=== PATIENT | female | born 1975 | race Caucasian/White ===

== ENCOUNTER 2021-09-05 16:49 | Inpatient (IN) | payer BC ==
[~2021-09-05] VITALS: Ht 157.5 cm; Wt 72.6 kg
[2021-09-05] MEDS ORDERED: EPINEPHRINE 1:1000 1 MG/ML AMP INJ ONE ×2 (17:15→19:15)
[2021-09-05] MEDS ORDERED: SODIUM CHLORIDE 0.9% 1,000 ML IV ONE (17:15)
[2021-09-05] MEDS ORDERED: FAMOTIDINE 20MG/2ML VIAL IV ONE (17:15)
[2021-09-05] MEDS ORDERED: METHYLPREDNISOLONE SOD SUCC 125 MG/2 ML VIAL IV ONE (17:15)
[2021-09-05] MEDS ORDERED: DIPHENHYDRAMINE 50MG/ML VIAL IV ONE (17:15)
[2021-09-05] MEDS ORDERED: HYDRALAZINE 20MG/ML VIAL IV ONE (17:15)
[2021-09-05] MEDS ORDERED: LORAZEPAM 2MG/ML CPJ IV ONE (17:30)
[2021-09-05 17:31] LABS: BASOPHILS % 0.2 % (0.0-2.0); EOSINOPHILS % 0.2 % (0.0-5.0); HEMATOCRIT. 31.1 % (36.0-48.0); HEMOGLOBIN. 10.7 g/dL (12.0-16.0); LYMPHOCYTES % 17.7 % (20.0-50.0); MEAN CORPUSCULAR VOLUME 81.1 fL (81.0-99.0); MEAN PLATELET VOLUME 8.5 fl (7.4-10.4); MONOCYTES % 7.6 % (2.0-8.0); NEUTROPHILS % 74.3 % (40.0-76.0); PLATELET 244 x1000/uL (130-400); RED BLOOD CELL COUNT 3.83 mill/uL (4.2-5.4); RED CELL DISTRIBUTION WIDTH 14.3 % (11.6-14.6)
[2021-09-05 17:36] LABS: CHLORIDE 108 mEq/L (98-107)
[2021-09-05 17:38] LABS: INR 1.1; PARTIAL THROMBOPLASTIN TIME 26.7 sec (23.4-31.0); PROTHROMBIN TIME 11.9 sec (9.6-11.0)
[2021-09-05 17:41] LABS: HCG SCREEN NEGATIVE
[2021-09-05] MEDS ORDERED: LORAZEPAM 2MG/ML CPJ ONE (17:41)
[2021-09-05 19:29] LABS: CLARITY URINE CLEAR (CLEAR); COLOR URINE YELLOW (YELLOW); KETONES URINE NEGATIVE (NEGATIVE); LEUKOCYTE ESTERASE URINE NEGATIVE (NEGATIVE); NITRITE URINE NEGATIVE (NEGATIVE); OCCULT BLOOD URINE NEGATIVE (NEGATIVE); PROTEIN URINE NEGATIVE (NEGATIVE); SPECIFIC GRAVITY URINE 1.003 (1.005-1.030); UROBILINOGEN URINE 0.2 E.U./dL (0.2-1.0)
[2021-09-05] MEDS ORDERED: CLONIDINE 0.1MG TABLET PO PRN (19:45)
[2021-09-05] MEDS ORDERED: GUAIFENESIN 200MG/10ML SUGAR FREE UDC PO PRN (19:45)
[2021-09-05] MEDS ORDERED: ONDANSETRON HCL 4MG/2ML INJ IV PRN (19:45)
[2021-09-05] MEDS ORDERED: DIPHENHYDRAMINE 50MG/ML VIAL IV PRN (19:45)
[2021-09-05] MEDS ORDERED: MAGNESIUM/ALUMINUM HYDROXIDE/SIMETHICONE 30ML UDC PO PRN (19:45)
[2021-09-05] MEDS ORDERED: IPRATROPIUM/ALBUTEROL 0.5-3(2.5)MG/3ML NEB NEB PRN (19:45)
[2021-09-05] MEDS ORDERED: ACETAMINOPHEN 325MG TABLET PO PRN ×2 (19:45)
[2021-09-05] MEDS ORDERED: NITROGLYCERIN 0.4MG TABLET SL SL PRN (19:45)
[2021-09-05] MEDS ORDERED: NALOXONE HCL 0.4MG/ML VIAL IV PRN (20:00)
[2021-09-05] MEDS ORDERED: LORAZEPAM 2MG/ML CPJ IV PRN (21:00)
[2021-09-05] MEDS: ENOXAPARIN 40MG/0.4ML SYR SUBCUT SCH (21:00)
[2021-09-05] MEDS ORDERED: ZOLPIDEM TARTRATE 5MG TABLET PO PRN (21:00)
[2021-09-05 21:58] LABS: TOTAL IRON BINDING CAPACITY 446 ug/dL (250-450)
[2021-09-05 22:16] LABS: FOLIC ACID (FOLATE) SERUM 9.3 ng/mL (>5.38)
[2021-09-05 23:20] VITALS: BP 124/89
[2021-09-06] VITALS (16 sets, daily range): BP systolic 117–157; BP diastolic 71–116
[2021-09-06 00:23] LABS: CREATINE KINASE MB FRACTION 4.1 ng/mL (0.5-3.6)
[2021-09-06] MEDS: TRAMADOL 50MG TABLET PO PRN ×3 (00:33→19:04)
[2021-09-06 00:36] LABS: CREATINE KINASE 2428 IU/L (26-192)
[2021-09-06] MEDS ORDERED: *PATIENT'S OWN MEDICATION STORAGE XX SCH (04:30)
[2021-09-06] MEDS: DOCUSATE SODIUM 100MG CAPSULE PO PRN ×2 (05:19→17:35)
[2021-09-06] MEDS: SULFAMETHOXAZOLE/TRIMETHOPRIM 800/160MG TABLET PO SCH ×2 (05:19→17:35)
[2021-09-06] MEDS: METHYLPREDNISOLONE SOD SUCC 125 MG/2 ML VIAL IV SCH ×3 (06:00→22:58)
[2021-09-06 06:40] LABS: BASOPHILS % 0.1 % (0.0-2.0); HEMATOCRIT. 29.5 % (36.0-48.0); LYMPHOCYTES % 9.3 % (20.0-50.0); MEAN CORPUSCULAR HEMOGLOBIN 27.6 pg (28.0-32.0); MEAN CORPUSCULAR VOLUME 81.5 fL (81.0-99.0); MEAN PLATELET VOLUME 8.8 fl (7.4-10.4); MONOCYTES % 7.9 % (2.0-8.0); NEUTROPHILS % 82.7 % (40.0-76.0); PLATELET 257 x1000/uL (130-400); RED BLOOD CELL COUNT 3.61 mill/uL (4.2-5.4); RED CELL DISTRIBUTION WIDTH 14.3 % (11.6-14.6)
[2021-09-06 08:29] LABS: CHLORIDE 109 mEq/L (98-107)
[2021-09-06 08:37] LABS: PHOSPHORUS 3.3 mg/dL (2.5-4.9)
[2021-09-06 08:41] LABS: CREATINE KINASE MB FRACTION 3.2 ng/mL (0.5-3.6)
[2021-09-06] MEDS: FAMOTIDINE 20MG TABLET PO SCH ×3 (08:43→21:35)
[2021-09-06 08:54] LABS: CREATINE KINASE 2053 IU/L (26-192)
[2021-09-06] MEDS: DEXT 5%/LACTATED RINGERS 1,000 ML IV SCH ×2 (09:51→10:50)
[2021-09-06] MEDS ORDERED: SODIUM CHLORIDE 0.9% 1,000 ML IV NR (12:00)
[2021-09-06 14:23] LABS: *BENZODIAZEPINES SCREEN URINE NEGATIVE (NEGATIVE); CANNABINOID URINE SCREEN NEGATIVE (NEGATIVE); PHENCYCLIDINE URINE SCREEN NEGATIVE (NEGATIVE)
[2021-09-06 14:25] LABS: *AMPHETAMINES SCREEN URINE NEGATIVE (NEGATIVE); *BARBITURATES SCREEN URINE NEGATIVE (NEGATIVE); *COCAINE SCREEN URINE NEGATIVE (NEGATIVE); METHADONE URINE SCREEN NEGATIVE (NEGATIVE)
[2021-09-06 14:27] LABS: OPIATES URINE SCREEN PRESUMTIVE POSITIVE (NEGATIVE)
[2021-09-06] MEDS: ENOXAPARIN 40MG/0.4ML SYR SUBCUT SCH (21:00)
[2021-09-07] VITALS (15 sets, daily range): BP systolic 122–154; BP diastolic 72–99
[2021-09-07] MEDS: DEXT 5%/LACTATED RINGERS 1,000 ML IV SCH ×2 (01:08→17:48)
[2021-09-07] MEDS: TRAMADOL 50MG TABLET PO PRN ×3 (05:38→18:40)
[2021-09-07] MEDS: DOCUSATE SODIUM 100MG CAPSULE PO PRN ×2 (05:44→18:40)
[2021-09-07] MEDS: METHYLPREDNISOLONE SOD SUCC 125 MG/2 ML VIAL IV SCH ×3 (06:00→22:01)
[2021-09-07] MEDS: SULFAMETHOXAZOLE/TRIMETHOPRIM 800/160MG TABLET PO SCH ×2 (06:32→17:48)
[2021-09-07] MEDS: FAMOTIDINE 20MG TABLET PO SCH ×2 (08:27→22:01)
[2021-09-07] MEDS ORDERED: SODIUM CHLORIDE 0.9% 1,000 ML IV ONE (10:00)
[2021-09-07] MEDS ORDERED: LORAZEPAM 0.5MG TABLET PO PRN (10:15)
[2021-09-07] MEDS: ENOXAPARIN 40MG/0.4ML SYR SUBCUT SCH (21:00)
[2021-09-08] VITALS (9 sets, daily range): BP systolic 129–158; BP diastolic 75–107
[2021-09-08] MEDS: TRAMADOL 50MG TABLET PO PRN ×2 (01:22→11:38)
[2021-09-08] MEDS: DEXT 5%/LACTATED RINGERS 1,000 ML IV SCH (03:17)
[2021-09-08] MEDS: METHYLPREDNISOLONE SOD SUCC 125 MG/2 ML VIAL IV SCH (05:54)
[2021-09-08] MEDS: SULFAMETHOXAZOLE/TRIMETHOPRIM 800/160MG TABLET PO SCH (05:54)
[2021-09-08 06:14] LABS: BASOPHILS % 0.2 % (0.0-2.0); EOSINOPHILS % 1.6 % (0.0-5.0); HEMATOCRIT. 30.3 % (36.0-48.0); HEMOGLOBIN. 10.4 g/dL (12.0-16.0); LYMPHOCYTES % 17.6 % (20.0-50.0); MEAN CORPUSCULAR HEMOGLOBIN 27.6 pg (28.0-32.0); MEAN CORPUSCULAR VOLUME 80.7 fL (81.0-99.0); MEAN PLATELET VOLUME 8.3 fl (7.4-10.4); MONOCYTES % 7.8 % (2.0-8.0); NEUTROPHILS % 72.8 % (40.0-76.0); PLATELET 243 x1000/uL (130-400); RED BLOOD CELL COUNT 3.75 mill/uL (4.2-5.4); RED CELL DISTRIBUTION WIDTH 13.9 % (11.6-14.6)
[2021-09-08 06:36] LABS: CHLORIDE 106 mEq/L (98-107)
[2021-09-08 06:43] LABS: PHOSPHORUS 3.5 mg/dL (2.5-4.9)
[2021-09-08] MEDS: FAMOTIDINE 20MG TABLET PO SCH (08:27)
[2021-09-08] MEDS ORDERED: POTASSIUM CHLORIDE 20MEQ/PACKET PO NR (09:15)
[2021-09-08] MEDS ORDERED: KCL 20MEQ/100ML PREMIX 100 ML IV NR (10:30)
[2021-09-08] MEDS ORDERED: SULF1TAB48 MT (12:40)
[2021-09-08] MEDS ORDERED: P50 PO (12:42)
[2021-09-08] MEDS ORDERED: POTASSIUM CHLORIDE 20MEQ TABLET SR PO NR (13:30)
== END 2021-09-08 13:54 | disposition home or self-care (01) | DRG 916 ==
LOC: ER 16:49 → EDBEDREQTM 19:05 → EDBEDREQ 19:05 → ENRESERV 21:59 → 3WST 09-06 00:23
PROVIDERS: ADMIT Internal Medicine; ATTEND Internal Medicine
DX: T88.6XXA Anaphylactic reaction due to adverse effect of correct drug or medicament properly administered, initial encounter (principal); I16.1 Hypertensive emergency; I47.1 Supraventricular tachycardia; Z88.0 Allergy status to penicillin; T50.995A Adverse effect of other drugs, medicaments and biological substances, initial encounter; Y92.89 Other specified places as the place of occurrence of the external cause
CPT/HCPCS: 36415; 71045; 80053; 80061; 80305; 81003; 82550; 82553; 82607; 82746; 83036; 83540; 83550; 83735; 83880; 84100; 84484; 84703; 85025; 93005; 99291; C1893; J0360; J1200; J1650; J2060; J2405; J2930; J3480; J3490; J7030